=== PATIENT | male | born 1985 | race African-American/Black ===

== ENCOUNTER 2019-08-31 14:11 | Emergency (ER) | payer MEDICAID ==
[~2019-08-31] VITALS: Ht 185.4 cm; Wt 117.9 kg
[~2019-08-31 14:11] MED LIST: ALBUTEROL SULF8.5 GM INH; IPRATROPIU0.2 MG/1 M HHN; LEVAQUIN500 MG ORAL; PREDNISONE20 MG ORAL; PREDNISONE20 MG PO; PROMETHAZINE-C118 M1 ORAL; ZYRTEC10 MG ORAL
[2019-08-31 14:23] VITALS: BP 125/72
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
[2019-08-31] MEDS ORDERED: Albuterol 90mcg Inhaler 8gm INH ONE (15:00)
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
[2019-08-31] MEDS ORDERED: ALBUTEROL SULF8.5 GM INH (15:34)
[2019-08-31] MEDS ORDERED: ZYRTEC10 MG ORAL (15:34)
[2019-08-31 16:00] VITALS: BP 135/77
--- NOTE | 2019-08-31 16:00 | NUR ---
ER DISCHARGE NOTE: Patient is cleared to be discharged per PA, pt is aox4, on room air, with stable vital signs. pt was given dc and prescription instructions, pt was able to verbalize understanding, pt id band removed. pt is able to ambulate with steady gait. pt took all belongings.
== END 2019-08-31 16:00 | disposition home or self-care (01) ==
LOC: EMR 15:48
DX: J45.901 Unspecified asthma with (acute) exacerbation (principal); Z76.0 Encounter for issue of repeat prescription
CPT/HCPCS: 94640; 94664; Z7502; 99284

== ENCOUNTER 2020-05-24 12:42 | Emergency (ER) | payer MEDICAID ==
[~2020-05-24] VITALS: Ht 182.9 cm; Wt 120.2 kg
--- NOTE | 2020-05-24 13:02 | NUR ---
ED Nurse Note: Pt ambulated to ed c/o midsternal pressure like chest pain x 3 weeks. pt report sitting idle makes pain worsen. pt reports last few days hes been experiencing headaches.
[2020-05-24 13:06] VITALS: BP 145/69
[2020-05-24] MEDS ORDERED: Ketorolac 30mg Inj ONE (13:11)
--- NOTE | 2020-05-24 13:13 | NUR ---
ED Nurse Note: xray at bedside
--- NOTE | 2020-05-24 13:13 | NUR ---
ED Nurse Note: blood and urine sent to lab
[2020-05-24] MEDS ORDERED: Ketorolac 30mg Inj IV ONE (13:15)
[2020-05-24 13:18] LABS: APPEARANCE,URINE CLEAR; BILIRUBIN, URINE NEGATIVE (NEGATIVE); COLOR,URINE PALE YELLOW; GLUCOSE, URINE (UA) NEGATIVE (NEGATIVE); KETONES,URINE NEGATIVE (NEGATIVE); LEUKOCYTE ESTERASE ,URINE 1+ (NEGATIVE); NITRITE,URINE NEGATIVE (NEGATIVE); PH,URINE 7 (4.5-8.0); PROTEIN,URINE NEGATIVE (NEGATIVE); UROBILINOGEN,URINE NORMAL MG/DL (0.0-1.0)
[2020-05-24 13:19] LABS: BASOPHILS % (AUTO) 1.6 % (0.0-2.0); EOSINOPHILS % (AUTO) 3.4 % (0.0-3.0); HEMATOCRIT 46.7 % (42.0-52.0); HEMOGLOBIN 15.5 G/DL (14.2-18.0); LYMPHOCYTES % (AUTO) 29.5 % (20.0-45.0); MEAN CORPUSCULAR VOLUME 83 FL (80-99); MONOCYTES % (AUTO) 8.8 % (1.0-10.0); NEUTROPHILS % (AUTO) 56.7 % (45.0-75.0); PLATELET COUNT 249 K/UL (150-450); RED BLOOD COUNT 5.62 M/UL (4.70-6.10); WHITE BLOOD COUNT 9.5 K/UL (4.8-10.8)
[2020-05-24 13:30] LABS: ANION GAP 7 mmol/L (5-15); BLOOD UREA NITROGEN 20 mg/dL (7-18); CARBON DIOXIDE 27 MMOL/L (21-32); CHLORIDE 102 MMOL/L (98-107); POTASSIUM 4.1 MMOL/L (3.5-5.1); SODIUM 136 MMOL/L (136-145)
[2020-05-24 13:42] LABS: ALANINE AMINOTRANSFERASE 37 U/L (12-78); ALBUMIN 4.4 G/DL (3.4-5.0); ALBUMIN/GLOBULIN RATIO 1.1 (1.0-2.7); ALKALINE PHOSPHATASE 73 U/L (46-116); ASPARTATE AMINO TRANSFERASE 33 U/L (15-37); BILIRUBIN,TOTAL 0.3 MG/DL (0.2-1.0)
--- NOTE | 2020-05-24 14:12 | Emergency Room Report ---
History of Present Illness General Chief Complaint: Chest Pain Source: Patient Present Illness HPI 35-year-old male with history of asthma and no other comorbidities here complaining of few weeks of intermittent central chest pain without any radiation. For the chest pain occurs when he is at work and walking around specially when he is wearing mask for prolonged time. Denies any shortness of breath, cough and congestion, fever and chills, abdominal pain, nausea vomiting diarrhea. Reports that he has been taking his albuterol inhaler with relief. Reports that the pain is better when he is laying down and resting. Denies any acid reflux, tobacco smoke, alcohol intake. Reports that he smokes marijuana on daily basis. Denies any cardiac history. Denies pleuritic chest pain. Denies edema in lower extremities. Also complains of intermittent bandlike headache starts in the center of his head and going down the neck around the symptom that he gets the chest pain throughout his shift at work. Denies photophobia, dizziness, head injury, vertigo, loss of balance, nausea vomiting. Allergies: Coded Allergies: No Known Allergies (Unverified , 08/26/12) COVID-19 Screening Contact w/high risk pt: No Experienced COVID-19 symptoms?: No COVID-19 Testing performed [employer] FORMS: No Patient History Past Medical History: see triage record Past Surgical History: none Pertinent Family History: none Social History: Reports: drug use - marijuana Immunizations: UTD Reviewed Nursing Documentation: PMH: Agreed; PSxH: Agreed Nursing Documentation-PMH Past Medical History: No History, Except For Hx Asthma: Yes Review of Systems All Other Systems: negative except mentioned in HPI Physical Exam Vital Signs Date Time Temp Pulse Resp B/P (MAP) Pulse Ox O2 Delivery O2 Flow Rate FiO2 05/24/20 12:53 98.8 78 16 125/57 (79) 95 Room Air Sp02 EP Interpretation: reviewed, normal General Appearance: no apparent distress, alert, GCS 15, non-toxic Head: normocephalic, atraumatic Eyes: bilateral eye normal inspection, bilateral eye PERRL ENT: hearing grossly normal, normal pharynx, no angioedema, normal voice Neck: full range of motion, supple/symm/no masses Respiratory: chest non-tender, lungs clear, normal breath sounds, no rhonchi, no wheezing, speaking full sentences Cardiovascular #1: regular rate, rhythm, no edema, no murmur Gastrointestinal: normal bowel sounds, non tender, soft, non-distended, no guarding, no rebound Rectal: deferred Genitourinary: no CVA tenderness Musculoskeletal: back normal Neurologic: alert, motor strength/tone normal, oriented x3, sensory intact, responsive, speech normal Psychiatric: judgement/insight normal, memory normal, mood/affect normal, no suicidal/homicidal ideation Skin: no rash Lymphatic: no adenopathy Medical Decision Making PA Attestation All diagnoses and treatment plans were reviewed and discussed with my supervising physician Dr. Fernando Diagnostic Impression: Primary Impression: Chest pain Additional Impressions: Tension headache Marijuana abuse ER Course 35-year-old male with history of asthma and no other comorbidities here complaining of few weeks of intermittent central chest pain without any radiation. For the chest pain occurs when he is at work and walking around specially when he is wearing mask for prolonged time. Denies any shortness of breath, cough and congestion, fever and chills, abdominal pain, nausea vomiting diarrhea. Reports that he has been taking his albuterol inhaler with relief. Reports that the pain is better when he is laying down and resting. Denies any acid reflux, tobacco smoke, alcohol intake. Reports that he smokes marijuana on daily basis. Denies any cardiac history. Denies pleuritic chest pain. Denies edema in lower extremities. Also complains of intermittent bandlike headache starts in the center of his head and going down the neck around the symptom that he gets the chest pain throughout his shift at work. Denies photophobia, dizziness, head injury, vertigo, loss of balance, nausea vomiting. Ddx considered but are not limited to: HI, Angina, COPD, GERD, Vital signs: are WNL, pt. is afebrile H&PE are most consistent with unspecified chest pain, tension headache, marijuana abuse ORDERS: EKG, Chest XR, cardiac labs,, Motrin, omeprazole ED INTERVENTIONS: NS bolus, Toradol DISCHARGE: At this time pt. is stable for d/c to home. Will provide printed patient care instructions, and any necessary prescriptions. Care plan and follow up instructions have been discussed with the patient prior to discharge. Patient take medication as directed, follow-up primary care provider for referral to tank assembler, if worsening symptom return to emergency room. Also avoid using marijuana. EKG Diagnostic Results Rate: normal Rhythm: NSR ST Segments: no acute changes Other Impression No acute ST changes Chest X-Ray Diagnostic Results Chest X-Ray Diagnostic Results : Chest X-Ray Ordered: Yes # of Views/Limited/Complete: 1 View Indication: Chest Pain EP Interpretation: Yes LOLIS Xray: Interpretation reviewed, by supervising MD, and agrees with findings. Interpretation: no consolidation, no effusion, no pneumothorax Impression: No acute disease Electronically Signed by: Catarino Ames PA-C Last Vital Signs Date Time Temp Pulse Resp B/P (MAP) Pulse Ox O2 Delivery O2 Flow Rate FiO2 05/24/20 13:44 98.8 05/24/20 13:06 74 18 Room Air 05/24/20 13:06 145/69 100 Disposition: HOME, SELF-CARE Condition: Stable Scripts Omeprazole (OMEPRAZOLE) 20 Mg Tablet.dr 20 MG ORAL DAILY, #30 TAB Prov: Catarino Burden 05/24/20 Ibuprofen* (MOTRIN*) 600 Mg Tablet 600 MG ORAL THREE TIMES A DAY, #30 TAB Prov: Catarino Burden 05/24/20 Referrals: [facility],REFERRING (PCP) Patient Instructions: Cannabis Use Disorder, Nonspecific Chest Pain, Tension Headache, [id number] Additional Instructions: Take medication as directed, follow-up with your primary care provider, you may need to be sent to a tank assembler, if worsening symptoms return to the emergency room Catarino Burden May 24, 2020 14:12
[2020-05-24] MEDS ORDERED: OMEPRAZOLE20 M3 ORAL (14:13)
[2020-05-24] MEDS ORDERED: IBUPROFEN600 M1 ORAL (14:13)
[2020-05-24 14:19] VITALS: BP 133/79
--- NOTE | 2020-05-24 14:19 | NUR ---
ER DISCHARGE NOTE: Patient is cleared to be discharged per ERMD, pt is aox4, on room air, with stable vital signs. pt was given dc and prescription instructions, pt was able to verbalize understanding, pt id band and iv site removed without complications. pt is able to ambulate with steady gait. pt took all belongings.
--- NOTE | 2020-05-24 14:29 | Diagnostic Imaging Report ---
Indication: Chest pain Technique: One view of the chest Comparison: 03/28/2019 Findings: Lungs and pleural spaces are clear. The heart is upper limits of normal in size. Azygos lobe and fissure are again demonstrated. Findings are unchanged Impression: No acute process
== END 2020-05-24 14:20 | disposition home or self-care (01) ==
LOC: EMR 13:31
DX: R07.9 Chest pain, unspecified (principal); G44.209 Tension-type headache, unspecified, not intractable; F12.10 Cannabis abuse, uncomplicated
CPT/HCPCS: 36415; 71045; 80053; 80307; 81003; 83880; 84484; 85025; 85379; 93005; 96361; 96374; J1885; Z7502; 99284; J7030